=== PATIENT | female | born 1980 | race Two or more races ===

== ENCOUNTER 2025-05-23 14:31 | Emergency (ER) | payer OTHER ==
[~2025-05-23] VITALS: Ht 149.9 cm; Wt 71.2 kg
[2025-05-23 14:31] VITALS: BP 157/105
[2025-05-23 14:51] LABS: PLATELET COUNT (AUTO) 183 K/uL (179-408); RED BLOOD CELL COUNT(AUTO) 4.64 MIL/uL (3.63-4.92); RED CELL DISTRIBUTION WIDTH 13.3 % (12.3-17.7); WHITE BLOOD COUNT (AUTO) 5.1 K/uL (3.8-11.8)
[2025-05-23 15:05] LABS: CREATININE 0.7 mg/dL (0.6-1.3); SODIUM SERUM 140 mmol/L (136-145); UREA NITROGEN, BLOOD 10 mg/dL (7-18)
[2025-05-23 15:11] LABS: ASPARTATE AMINOTRANSFERASE 34 U/L (15-37); TOTAL PROTEIN, SERUM 8.0 g/dL (6.4-8.2)
[2025-05-23 19:28] VITALS: BP 106/63; TEMP 97.6; O2SAT 96
== END 2025-05-23 19:34 | disposition home or self-care (01) ==
LOC: ER 14:31
DX: R55 Syncope and collapse (principal); G89.29 Other chronic pain
CPT/HCPCS: 36415; 71045; 84484; 85025; 85730; A4606; A4663